=== PATIENT | female | born 1990 ===

== ENCOUNTER 2021-02-04 19:26 | Emergency (ER) | payer OTHER ==
[~2021-02-04] VITALS: Ht 170.2 cm; Wt 61.4 kg
[2021-02-04 20:03] VITALS: BP 111/74
== END 2021-02-04 20:31 | disposition left against medical advice (07) ==
LOC: EMS 19:26
DX: F41.9 Anxiety disorder, unspecified (principal); Z53.21 Procedure and treatment not carried out due to patient leaving prior to being seen by health care provider